=== PATIENT | male | born 1950 | race Caucasian/White ===

== ENCOUNTER → 2017-08-25 | Outpatient (CLI) | payer BC ==
--- NOTE | 2017-08-26 06:58 | US ---
EXAMINATION TYPE: US scrotum with doppler. Grayscale and color Doppler Duplex imaging performed of edilia silva scrotum. DATE OF EXAM: 08/25/2017 COMPARISON: NONE CLINICAL HISTORY: E28.0 Hyperestrogenism. Estrogen excess EXAM MEASUREMENTS: TESTICLES: Right Testicle: 3.3 x 2.4 x 1.6 cm, heterogeneous Left Testicle: 3.0 x 2.1 x 1.9 cm, heterogeneous EPIDIDYMIS HEAD: Right Epididymis: 0.7 x 0.8 x 1.3 cm Left Epididymis: 0.7 x 1.0 x 0.7 cm Doppler performed to assess for testicular vascularity; good bilateral arterial flow seen and good ve nous flow seen within right testicle, unable to obtain venous flow within the left testicle. Presence of hydroceles: right 2.4cm, left 2.4cm Presence of varicoceles: no Testicles are slightly heterogeneous in appearance but no distinct focal intratesticular mass is pres ent bilaterally. There are small scrotal fluid collection or hydroceles seen. Comparison views show s ymmetric blood flow to both testicles. IMPRESSION: No worrisome intratesticular mass is identified.
== END | disposition home or self-care (01) ==
LOC: RADUSWWP 15:08
PROVIDERS: ATTEND Family Medicine
DX: N43.3 Hydrocele, unspecified (principal)
CPT/HCPCS: 76870; 93975